=== PATIENT | female | born 1965 | race Caucasian/White ===

== ENCOUNTER → 2016-06-07 | Outpatient (CLI) | payer OTHER | LOC: MC.RAD 17:00 | DX: Z12.31 Encounter for screening mammogram for malignant neoplasm of breast (principal); N63 Unspecified lump in breast ==

== ENCOUNTER → 2016-06-09 | Outpatient (CLI) | payer OTHER | LOC: MC.RAD 14:00 | DX: N63 Unspecified lump in breast (principal) ==

== ENCOUNTER → 2016-12-12 | Outpatient (CLI) | payer OTHER | LOC: MC.RAD 09:00 | DX: N64.89 Other specified disorders of breast (principal); N63 Unspecified lump in breast; N60.42 Mammary duct ectasia of left breast; N60.41 Mammary duct ectasia of right breast ==

== ENCOUNTER → 2017-08-07 | Outpatient (CLI) | payer OTHER | LOC: MC.RAD 08:58 | DX: N64.89 Other specified disorders of breast (principal) ==

== ENCOUNTER 2022-06-16 12:19 | Emergency (ER) | payer SELFPAY ==
[~2022-06-16] VITALS: Ht 167.6 cm; Wt 95.5 kg
[2022-06-16 12:25] VITALS: TEMP 98.7
[2022-06-16] MEDS ORDERED: CEPHALEXIN500 M1 PO (13:16)
[2022-06-16] MEDS ORDERED: PERCOCET 325 MG1 TA2 PO (13:16)
[2022-06-16] MEDS ORDERED: BACTRIM DS 8001 TAB PO (13:16)
[2022-06-16 13:21] VITALS: BP 125/77; PULSE 78
== END 2022-06-16 13:39 | disposition home or self-care (01) ==
LOC: COL.ER 12:19
DX: L02.211 Cutaneous abscess of abdominal wall (principal); Z90.49 Acquired absence of other specified parts of digestive tract
CPT/HCPCS: J0696

== ENCOUNTER → 2024-02-21 | Outpatient (CLI) | payer SELFPAY ==
[~2024-02-21] MED LIST: BACTRIM DS 8001 TAB PO; CEPHALEXIN500 M1 PO; PERCOCET 325 MG1 TA2 PO
== END ==
LOC: MHCPAIN 13:11
DX: M79.7 Fibromyalgia (principal); M43.16 Spondylolisthesis, lumbar region; M47.816 Spondylosis without myelopathy or radiculopathy, lumbar region; M51.26 Other intervertebral disc displacement, lumbar region
CPT/HCPCS: G0463